=== PATIENT | male | born 2000 | race Caucasian/White ===

== ENCOUNTER 2020-09-14 17:21 | Emergency (ER) | payer MEDICAID ==
[~2020-09-14] VITALS: Ht 177.8 cm; Wt 142.9 kg
[2020-09-14 17:21] VITALS: BP_SYST 137
[2020-09-14] MEDS ORDERED: KETOROLAC TROMETHAMINE 30 MG VIAL IM ONE (18:15)
[2020-09-14] MEDS ORDERED: DEXAMETHASONE SOD PHOSPHATE 10 MG/ML VIAL PO ONE (18:15)
[2020-09-14] MEDS ORDERED: AMOX500C2 PO (18:15)
[2020-09-14] MEDS ORDERED: NAPR-1172 PO (18:15)
[2020-09-14 18:33] VITALS: BP_SYST 134
== END 2020-09-14 18:30 | disposition home or self-care (01) ==
LOC: SED 17:21
DX: J02.9 Acute pharyngitis, unspecified (principal); Z79.899 Other long term (current) drug therapy
CPT/HCPCS: 96372; 99283; J1100; J1885

== ENCOUNTER 2022-09-17 22:25 | Emergency (ER) | payer MEDICAID ==
[~2022-09-17] VITALS: Ht 175.3 cm; Wt 142.9 kg
[~2022-09-17 22:25] MED LIST: AMOX500C2 PO; NAPR-1172 PO
[2022-09-17 22:30] VITALS: BP_SYST 131
--- NOTE | 2022-09-17 22:30 | NUR ---
Triaged and placed patient back to the waiting room. No acute respiratory distress at this time. VSS. Informed patient to notify ED staff for any changes in condition or worsening of symptoms while waiting to be seen by a provider. Patient verbalized understanding.
--- NOTE | 2022-09-17 22:44 | NUR ---
Patient placed in ER BED 1 for evaluation. Bed in lowest position with siderails up. Report given to PIPO ARCE for continuity of care. Instructed to notify ED staff for any changes in condition or worsening of symptoms. Patient verbalized understanding.
--- NOTE | 2022-09-17 22:49 | NUR ---
Dr. JACOB at bedside examining the patient.
[2022-09-17] MEDS ORDERED: ACETAMINOPHEN 500 MG TABLET PO ONE (23:00)
[2022-09-17] MEDS ORDERED: IBUP-1970 PO (23:23)
[2022-09-17] MEDS ORDERED: ACET-2634 PO (23:23)
[2022-09-17 23:59] VITALS: BP_SYST 131
--- NOTE | 2022-09-18 00:01 | NUR ---
Patient given written and verbal discharge instructions and verbalizes understanding. ER MD ceja discussed with patient the results and treatment provided. Patient in stable condition. ID arm band removed. IV catheter removed intact and dressing applied, no active bleeding. Rx of IBUPROPHEN given. Patient educated on pain management and to follow up with PMD. Pain Scale . Opportunity for questions provided and answered. Medication side effect fact sheet provided.
== END 2022-09-17 23:59 | disposition home or self-care (01) ==
LOC: SED 22:25
DX: S93.602A Unspecified sprain of left foot, initial encounter (principal); Z79.899 Other long term (current) drug therapy; X58.XXXA Exposure to other specified factors, initial encounter; Y93.02 Activity, running; Y92.89 Other specified places as the place of occurrence of the external cause; Y99.8 Other external cause status
CPT/HCPCS: 99283